=== PATIENT | male | born 1975 | race Caucasian/White ===

== ENCOUNTER 2017-07-01 14:07 | Outpatient (CLI) | payer MEDICAID ==
[2017-07-01 18:38] LABS: BASOPHILS % (AUTO) 0.5 %; EOSINOPHILS % (AUTO) 0.2 %; HCT - HEMATOCRIT 53.8 % (42.0-52.0); HGB - HEMOGLOBIN 18.2 g/dL (14.0-18.0); LYMPHOCYTES # (AUTO) 0.7 10^3/uL (1.5-3.5); LYMPHOCYTES % (AUTO) 7.8 %; MEAN CORPUSCULAR HGB CONC 33.9 g/dL (32.0-36.0); MEAN CORPUSCULAR VOLUME 94.4 fL (80.0-94.0); MEAN PLATELET VOLUME 7.2 fL (7.4-11.4); MONOCYTES # (AUTO) 0.7 10^3/uL (0.0-1.0); MONOCYTES % (AUTO) 7.7 %; NEUTROPHILS # (AUTO) 7.8 10^3/uL (1.5-6.6); NEUTROPHILS % (AUTO) 83.8 %; NUCLEATED RED BLOOD CELLS AUTO 0.1 /100WBC; RED CELL DISTRIBUTION WIDTH 17.2 % (12.0-15.0); UNCORRECTED WHITE BLOOD COUNT 9.3 x10^3/uL; WHITE BLOOD COUNT 9.3 x10^3/uL (4.8-10.8)
[2017-07-01 19:05] LABS: CREATININE 0.7 mg/dL (0.6-1.2); POTASSIUM 3.6 mmol/L (3.5-5.0); TOTAL PROTEIN 7.5 g/dL (6.7-8.2)
== END 2017-07-01 14:08 | disposition home or self-care (01) ==
LOC: LAB.F 14:07
PROVIDERS: ATTEND Nurse Practitioner Family
DX: F10.10 Alcohol abuse, uncomplicated (principal)
CPT/HCPCS: 36415; 80053; 85025

== ENCOUNTER 2017-09-06 14:01 | Outpatient (CLI) | payer MEDICAID ==
[2017-09-06 18:16] LABS: BASOPHILS # (AUTO) 0.1 10^3/uL (0.0-0.1); BASOPHILS % (AUTO) 0.6 %; EOSINOPHILS # (AUTO) 0.3 10^3/uL (0.0-0.7); EOSINOPHILS % (AUTO) 2.7 %; HCT - HEMATOCRIT 51.6 % (42.0-52.0); HGB - HEMOGLOBIN 17.8 g/dL (14.0-18.0); LYMPHOCYTES # (AUTO) 1.6 10^3/uL (1.5-3.5); LYMPHOCYTES % (AUTO) 16.2 %; MEAN CORPUSCULAR HEMOGLOBIN 32.7 pg (27.0-31.0); MEAN CORPUSCULAR HGB CONC 34.6 g/dL (32.0-36.0); MEAN CORPUSCULAR VOLUME 94.4 fL (80.0-94.0); MEAN PLATELET VOLUME 7.7 fL (7.4-11.4); MONOCYTES # (AUTO) 0.6 10^3/uL (0.0-1.0); MONOCYTES % (AUTO) 5.6 %; NEUTROPHILS # (AUTO) 7.4 10^3/uL (1.5-6.6); NEUTROPHILS % (AUTO) 74.9 %; NUCLEATED RED BLOOD CELLS AUTO 0.1 /100WBC; RED BLOOD COUNT 5.46 10^6/uL (4.70-6.10); RED CELL DISTRIBUTION WIDTH 15.2 % (12.0-15.0); UNCORRECTED WHITE BLOOD COUNT 9.9 x10^3/uL; WHITE BLOOD COUNT 9.9 x10^3/uL (4.8-10.8)
[2017-09-06 18:45] LABS: ALBUMIN/GLOBULIN RATIO 1.2 (1.0-2.2); BILIRUBIN,TOTAL 1.3 mg/dL (0.2-1.0); BUN - BLOOD UREA NITROGEN 14 mg/dL (6-20); CALCIUM 9.4 mg/dL (8.5-10.3); CARBON DIOXIDE - CO2 27 mmol/L (21-32); CHLORIDE 100 mmol/L (101-111); CHOL/HDL RATIO 4.8 (<5.0); CHOLESTEROL 328 mg/dL; CREATININE 0.7 mg/dL (0.6-1.2); GFR - MDRD 123 (>89); GLUCOSE 119 mg/dL (70-100); HDL CHOLESTEROL 68 mg/dL; SODIUM 138 mmol/L (135-145); TOTAL PROTEIN 7.8 g/dL (6.7-8.2); TRIGLYCERIDES 568 mg/dL
[2017-09-06 19:49] LABS: LDL CHOLESTEROL,DIRECT 200 mg/dL
== END 2017-09-06 14:02 | disposition home or self-care (01) ==
LOC: LAB.F 14:01
PROVIDERS: ATTEND Nurse Practitioner Family
DX: F10.10 Alcohol abuse, uncomplicated (principal); I10 Essential (primary) hypertension; Z13.220 Encounter for screening for lipoid disorders
CPT/HCPCS: 36415; 80050; 80061

== ENCOUNTER 2017-09-11 08:00 | Outpatient (CLI) | payer MEDICAID ==
[2017-09-11 18:38] LABS: FOLATE 16.01 ng/mL (5.90 - >24.8)
[2017-09-11 18:54] LABS: HEMOGLOBIN A1C 0.72 g/dL
== END 2017-09-11 08:01 | disposition home or self-care (01) ==
LOC: LAB.F 08:00
PROVIDERS: ATTEND Nurse Practitioner Family
DX: D64.9 Anemia, unspecified (principal); R73.9 Hyperglycemia, unspecified
CPT/HCPCS: 36415; 82607; 82746; 83036

== ENCOUNTER 2017-10-31 20:08 | Outpatient (CLI) | payer MEDICAID | END 2017-10-31 20:09 | disposition critical access hospital (66) | LOC: EMS 20:08 | PROVIDERS: ATTEND Surgery | DX: F10.129 Alcohol abuse with intoxication, unspecified (principal) | CPT/HCPCS: A0425; A0429 ==

== ENCOUNTER 2017-10-31 20:20 | Emergency (ER) | payer MEDICAID ==
[2017-10-31] MEDS ORDERED: SODIUM CHLORIDE 0.9% 1,000 ML IV ONE (20:29)
[2017-10-31] MEDS ORDERED: MIDAZOLAM 2 MG/2 ML VIAL IVP STA (20:29)
[2017-10-31] MEDS ORDERED: HALOPERIDOL 5 MG/ML VIAL IVP ONE (20:30)
[2017-10-31] MEDS ORDERED: MIDAZOLAM 2 MG/2 ML VIAL ONE (20:31)
[2017-10-31] MEDS ORDERED: HALOPERIDOL 5 MG/ML VIAL ONE (20:31)
--- NOTE | 2017-10-31 20:35 | ED Physician Documentation ---
PD HPI ALTERED MENTAL STATUS - Stated complaint Stated Complaint: EXPOSURE/ETOH - History obtained from History obtained from: Patient, EMS - History of Present Illness Timing - onset: Other (42-year-old male Brought in by ambulance, reportedly he was found down in somebody's yard with a bottle of alcohol at the side. He may have had a seizure, the paramedics think they witnessed some seizure activity. He also is saying that he took a whole bunch of medication but will not say why or what. He is beligerent and uncooperative on arrival here, fighting with the staff and swearing.) Review of Systems Unable to obtain: Uncooperative PD PAST MEDICAL HISTORY - Past Surgical History Past Surgical History: No - Present Medications Home Medications: Ambulatory Orders Medication Instructions Recorded Confirmed Cetirizine HCl 10 mg PO DAILY #30 tablet 01/23/16 Dexamethasone [Decadron] 4 mg PO DAILY #10 tablet 01/23/16 Hydrocortisone Acetate [Anucort-Hc] 25 mg RC DAILY #5 supp.rect 01/23/16 - Allergies Allergies/Adverse Reactions: Allergies Allergy/AdvReac Type Severity Reaction Status Date / Time Penicillins Allergy Unknown Unknown Verified 01/23/16 02:53 - Social History Does the pt smoke?: No Smoking Status: Former smoker Does the pt drink ETOH?: Yes Does the pt have substance abuse?: No - Immunizations Immunizations are current?: No - POLST Patient has POLST: No PD ED PE NORMAL - Vitals Vital signs reviewed: Yes - General General: Other (He is alert with slow slurred speech, fighting with the staff, multiple paramedics and police officers are holding him down. He is swearing a lot and uncooperative.) - HEENT HEENT: Other (Small pupils, not cooperating with extraocular movement exam) - Neck Neck: Supple, no meningeal sign, No bony TTP - Cardiac Cardiac: RRR, No murmur - Respiratory Respiratory: No respiratory distress, Clear bilaterally - Abdomen Abdomen: Normal bowel sounds, Soft, Non tender - Derm Derm: Other (He has psoriasis) - Extremities Extremities: Other (He is moving all extremities with good strength with which he is using to fight with the staff. Multiple staff members, please officers, and firefighters are holding him down.) - Neuro Neuro: Other (He is alert and oriented to person, otherwise I am unable to assess his orientation. He has excellent strength with all 4 extremities. He is using the strength to fight with staff.) Results - Vitals Vitals: Vital Signs - 24 hr 10/31/17 10/31/17 20:15 21:21 Temperature 37.2 C Heart Rate 96 96 Respiratory 20 18 Rate Blood Pressure 128/111 H 139/93 H O2 Saturation 98 98 Oxygen O2 Source Nasal cannula Oxygen Flow Rate 2 - EKG (time done) 2035 Rate: Rate (enter#) (98) Rhythm: NSR [place]: Normal Intervals: Normal [place] QRS: Normal Ischemia: Normal ST segments Computer interpretation: Agree with computer - Labs Labs: Laboratory Tests 10/31/17 10/31/17 10/31/17 20:35 20:51 20:51 WBC 12.1 H RBC 5.20 Hgb 16.7 Hct 48.9 MCV 94.1 H MCH 32.1 H MCHC 34.1 RDW 14.8 Plt Count 339 MPV 7.1 L Neut # Not Reportable Lymph # Not Reportable [place] # Not Reportable Eos # Not Reportable Baso # Not Reportable Absolute Nucleated RBC Not Reportable Total Counted 100 Band Neuts % (Manual) 5 Abnorm Lymph % (Manual) 0 Nucleated RBC % Not Reportable Neutrophils # (Manual) 10.5 H Lymphocytes # (Manual) 1.1 L Monocytes # (Manual) 0.4 Eosinophils # (Manual) 0.0 Basophils # (Manual) 0.1 Differential Comment MANUAL DIFFERENTIAL Manual Slide Review Indicated Platelet Estimate NORMAL (130-450,000) Platelet Morphology NORMAL APPEARANCE RBC Morph Micro Appear NORMAL APPEARANCE Sodium 142 Potassium 3.7 Chloride 101 Carbon Dioxide 19 L Anion Gap 22.0 H BUN 8 Creatinine 0.8 Estimated GFR (MDRD) 105 Glucose 138 H Calcium 9.0 Magnesium 1.7 Total Bilirubin 0.6 AST 36 ALT 42 Alkaline Phosphatase 69 Total Protein 8.1 Albumin 4.7 Globulin 3.4 Albumin/Globulin Ratio 1.4 Lipase 24 Urine Color YELLOW Urine Clarity CLEAR Urine pH 6.0 Ur Specific [place] 1.025 Urine Protein 100 H Urine Glucose (UA) NEGATIVE Urine Ketones NEGATIVE Urine Occult Blood TRACE-INTA Urine Nitrite NEGATIVE Urine Bilirubin NEGATIVE Urine Urobilinogen 0.2 (NORMAL) Ur Leukocyte Esterase NEGATIVE Urine RBC 0-5 Urine WBC 0-3 Ur Squamous Epith Cells NONE SEEN Amorphous Sediment Moderate Urine Bacteria None Seen Urine Casts 0-2 Hyaline Casts Ur Microscopic Review INDICATED Urine Culture Comments NOT INDICATED Salicylates < 6.0 Urine Opiates Screen NEGATIVE Ur Oxycodone Screen NEGATIVE Urine Methadone Screen NEGATIVE Ur Propoxyphene Screen NEGATIVE Acetaminophen < 10 L Ur Barbiturates Screen NEGATIVE Ur Tricyclics Screen NEGATIVE Ur Phencyclidine Scrn NEGATIVE Ur Amphetamine Screen NEGATIVE U Methamphetamines Scrn NEGATIVE U Benzodiazepines Scrn NEGATIVE Urine Cocaine Screen NEGATIVE U Cannabinoids Screen NEGATIVE Ethyl Alcohol 361.9 - Rads (name of study) CT Head Radiology: EMP read contemporaneously (No acute intracranial abnormality) Procedures - General procedure General procedure: It became readily apparent on arrival to the patient would need to be sedated for a workup and for staff safety. He is actively fighting us and is somewhat obese therefore I made the decision to place an IO. I personally placed an IO in the right proximal tibia anteriorly after ChloraPrep which krys back marrow and flushed easily. PD MEDICAL DECISION MAKING - ED course ED course: 42-year-old gentleman presents belligerent, violent and fighting with staff. Apparently drunk. For patient and staff safety he needed to be sedated. Because of uncooperativeness And fighting on arrival I did not feel like it was safe to try to place an IV so I personally placed an IO and we sedated him. At that point we were able to place an IV later once he was more cooperative and the IO was promptly removed. No obvious findings to explain his presentation other than severe alcohol intoxication. Care to Dr. Davidson at shift change to continue to monitor, hopefully after several hours of allowing him to stay sober up he will be able to be discharged without ill effect. Departure - Departure Clinical Impression: Combative behavior Alcohol intoxication Qualifiers: Complication of substance-induced condition: with delirium Qualified Code(s): F10.921 - Alcohol use, unspecified with intoxication delirium Condition: Good Record reviewed to determine appropriate education?: Yes Instructions: ED Alcohol Intoxication Comments: You got very drunk tonight and as such you were out of control and your behavior was dangerous to yourself and to public service personnel. Please refrain from drinking in the future. Call your doctor to arrange a follow-up appointment, make the next available appointment. In the interim, return anytime if worse or if new symptoms develop. Your blood pressure was elevated today on check into the emergency department. This does not mean that you have hypertension, it is a common phenomenon to come to the emergency department and have elevated blood pressure. I recommend that you see your primary care physician within the week to have it rechecked when you are feeling better.
[2017-10-31 20:50] LABS: BILIRUBIN,URINE NEGATIVE (NEGATIVE)
[2017-10-31 20:51] LABS: UA w/ MICROSCOPIC CHARGE YES
[2017-10-31 21:01] LABS: UR CULTURE IF IND NOT INDICATED; WBC,URINE 0-3 /HPF (0-3)
[2017-10-31 21:07] LABS: BASOPHILS % (AUTO) 1.6 %; EOSINOPHILS % (AUTO) 5.5 %; HCT - HEMATOCRIT 48.9 % (42.0-52.0); HGB - HEMOGLOBIN 16.7 g/dL (14.0-18.0); LYMPHOCYTES % (AUTO) 20.9 %; MEAN CORPUSCULAR HEMOGLOBIN 32.1 pg (27.0-31.0); MEAN CORPUSCULAR HGB CONC 34.1 g/dL (32.0-36.0); MEAN CORPUSCULAR VOLUME 94.1 fL (80.0-94.0); MEAN PLATELET VOLUME 7.1 fL (7.4-11.4); MONOCYTES % (AUTO) 5.5 %; NEUTROPHILS % (AUTO) 66.5 %; RED CELL DISTRIBUTION WIDTH 14.8 % (12.0-15.0); UNCORRECTED WHITE BLOOD COUNT 12.1 x10^3/uL; WHITE BLOOD COUNT 12.1 x10^3/uL (4.8-10.8)
[2017-10-31 21:33] LABS: ACETAMINOPHEN < 10 ug/mL (10-30); ALBUMIN/GLOBULIN RATIO 1.4 (1.0-2.2); BILIRUBIN,TOTAL 0.6 mg/dL (0.2-1.0); BUN - BLOOD UREA NITROGEN 8 mg/dL (6-20); CARBON DIOXIDE - CO2 19 mmol/L (21-32); CHLORIDE 101 mmol/L (101-111); CREATININE 0.8 mg/dL (0.6-1.2); GFR - MDRD 105 (>89); GLUCOSE 138 mg/dL (70-100); LIPASE 24 U/L (22-51); MAGNESIUM 1.7 mg/dL (1.7-2.8); POTASSIUM 3.7 mmol/L (3.5-5.0); SALICYLATE < 6.0 mg/dL; SODIUM 142 mmol/L (135-145); TOTAL PROTEIN 8.1 g/dL (6.7-8.2)
[2017-10-31 21:34] LABS: BAND NEUTROPHILS % (MANUAL) 5 %; BASOPHILS % (MANUAL) 1 %; LYMPHOCYTES % (MANUAL) 9 %; NEUTROPHILS % (MANUAL) 82 %; NP AUTO DIFFERENTIAL? YES; NP MAN DIFFERENTIAL? NO; PLATELET ESTIMATE, MANUAL NORMAL (130-450,000) (NORMAL); PLATELET MORPHOLOGY NORMAL APPEARANCE (NORMAL); TOTAL CELLS COUNTED 100
--- NOTE | 2017-10-31 21:37 | CT Preliminary Report ---
Exam: CT HEAD W/O IMPRESSION: 1. No acute intracranial abnormality. [facility] SITE ID: [id number]
--- NOTE | 2017-10-31 21:40 | CT Report ---
EXAM: CT HEAD EXAM DATE: 10/31/2017 09:09 PM. CLINICAL HISTORY: Poss head inj, poss seziure, altered. COMPARISON: 12/29/2010 CT head. TECHNIQUE: Multiaxial CT images were obtained from the foramen magnum to the vertex. Reformats: Coron al. IV contrast: None. In accordance with CT protocol optimization, one or more of the following dose reduction techniques w ere utilized for this exam: automated exposure control, adjustment of mA and/or KV based on patient s ize, or use of iterative reconstructive technique. FINDINGS: Parenchyma: No intraparenchymal hemorrhage. No evidence of mass, midline shift, or CT findings of inf arction. Ruiz-white differentiation is distinct. Extraaxial Spaces: Normal for age. No subdural or epidural collections identified. Ventricles: Normal in size and position. Sinuses and Orbits: There is extensive ethmoid air cell opacification. Mild mucosal thickening also s een in the maxillary air cells. Bones: No evidence of fracture or calvarial defect. Other: None. IMPRESSION: 1. No acute intracranial abnormality. [facility] Referring Provider Line: [phone] SITE ID: [id number]
[2017-11-01 05:51] VITALS: BP 179/114
--- NOTE | 2017-11-01 05:57 | ED Physician Documentation ---
ED Addendum - Addendum Addendum: 11/01/17 05:56 Patient was observed overnight without any difficulty. After approximately 10 hours patient was awake alert and oriented. patient was able to attend to conversation and ambulate without difficulty. patient was a bit hypertensive but he stated he took meds for it, but he did not know the name and he would take it when he got home. patient called his roomate to come pick him up.
== END 2017-11-01 06:07 | disposition home or self-care (01) ==
LOC: EDUNIT# → ED 20:20
DX: F91.8 Other conduct disorders (principal); F10.121 Alcohol abuse with intoxication delirium; R03.0 Elevated blood-pressure reading, without diagnosis of hypertension; Z87.891 Personal history of nicotine dependence
CPT/HCPCS: 36415; 36680; 51701; 70450; 80053; 80306; 80307; 80320; 80329; 81001; 81003; 83690; 83735; 85025; 87086; 93005; 99285

== ENCOUNTER 2017-11-20 00:21 | Outpatient (CLI) | payer MEDICAID | END 2017-11-20 00:22 | disposition critical access hospital (66) | LOC: EMS 00:21 | PROVIDERS: ATTEND Surgery | DX: S06.9X1A Unspecified intracranial injury with loss of consciousness of 30 minutes or less, initial encounter (principal); W01.190A Fall on same level from slipping, tripping and stumbling with subsequent striking against furniture, initial encounter; Z91.81 History of falling; Y92.018 Other place in single-family (private) house as the place of occurrence of the external cause | CPT/HCPCS: A0425; A0429 ==

== ENCOUNTER 2017-11-20 00:33 | Emergency (ER) | payer MEDICAID ==
--- NOTE | 2017-11-20 01:40 | CT Preliminary Report ---
Exam: CT HEAD W/O IMPRESSION: No acute or focal intracranial abnormality. Stable mucosal disease within the paranasal s inuses. [facility] SITE ID: [id number]
--- NOTE | 2017-11-20 01:43 | CT Report ---
EXAM: CT HEAD EXAM DATE: 11/20/2017 01:26 AM. CLINICAL HISTORY: Fall and intoxication . COMPARISON: 10/31/2017. TECHNIQUE: Multiaxial CT images were obtained from the foramen magnum to the vertex. Reformats: Coron al. IV contrast: None. In accordance with CT protocol optimization, one or more of the following dose reduction techniques w ere utilized for this exam: automated exposure control, adjustment of mA and/or KV based on patient s ize, or use of iterative reconstructive technique. FINDINGS: Parenchyma: No intraparenchymal hemorrhage. No evidence of mass, midline shift, or CT findings of inf arction. Ruiz-white differentiation is distinct. Extraaxial Spaces: Normal for age. No subdural or epidural collections identified. Ventricles: Normal in size and position. Sinuses and Orbits: Stable opacification of the ethmoid air cells bilaterally. Moderate mucosal thick ening within the left maxillary antrum. The appearance is similar. Bones: No evidence of fracture or calvarial defect. Other: None. IMPRESSION: No acute or focal intracranial abnormality. Stable mucosal disease within the paranasal s inuses. [facility] Referring Provider Line: [phone] SITE ID: [id number]
--- NOTE | 2017-11-20 02:56 | ED Physician Documentation ---
History of Present Illness - Stated complaint Stated Complaint: ETOH - Chief complaint Chief Complaint: Trauma Hd/Nk - History obtained from History obtained from: Patient (pt reports that his roomates called EMS because they heard a "thump" he states that he does not know why he is here. has no complaints states that he did not fall. states that he has been drinking but denies any other drugs.), EMS (EMS reports that they were called because the pt was intoxicated and fell hitting his head. Pt was combative at the scene and had to be restrained.) Review of Systems Unable to obtain: Intoxicated PD PAST MEDICAL HISTORY - Past Medical History Past Medical History: Yes Psych: Other Other Past Medical History: Alcohol abuse - Past Surgical History Past Surgical History: No - Present Medications Home Medications: Ambulatory Orders Medication Instructions Recorded Confirmed Cetirizine HCl 10 mg PO DAILY #30 tablet 01/23/16 11/20/17 Anticholesterol Meds 11/20/17 Depression Meds 11/20/17 Hypertension Meds 11/20/17 - Allergies Allergies/Adverse Reactions: Allergies Allergy/AdvReac Type Severity Reaction Status Date / Time Penicillins Allergy Unknown Unknown Verified 11/20/17 00:55 - Social History Does the pt smoke?: No Smoking Status: Never smoker Does the pt drink ETOH?: Yes Does the pt have substance abuse?: No - Immunizations Immunizations are current?: No - POLST Patient has POLST: No PD ED PE NORMAL - Vitals Vital signs reviewed: Yes - General General: Well developed/nourished. No: Alert and oriented X 3 (alert to person and that he was in the hospital but did not know why he was here) - HEENT HEENT: Atraumatic, Moist mucous membranes - Neck Neck: No bony TTP - Cardiac Cardiac: RRR, No murmur - Respiratory Respiratory: No respiratory distress, Clear bilaterally - Abdomen Abdomen: Soft, Non tender - Back Back: No CVA TTP, No spinal TTP - Derm Derm: Normal color, Warm and dry - Neuro Neuro: Other (intoxicated but cooperative ) Eye Opening: Spontaneous Motor: Obeys Commands Verbal: Confused GCS Score: 14 - Psych Psych: Normal mood (not combative on my exam. ) Results - Vitals Vitals: Vital Signs - 24 hr 11/20/17 11/20/17 11/20/17 00:35 01:10 05:43 Temperature 36.8 C Heart Rate 100 94 83 Respiratory 16 16 18 Rate Blood Pressure 111/87 H 99/51 L 100/74 O2 Saturation 95 96 98 Oxygen O2 Source Room air - Rads (name of study) head CT Radiology: Final report received (normal HEad CT ), EMP read contemporaneously PD MEDICAL DECISION MAKING - ED course Complexity details: reviewed results, considered differential, d/w patient ED course: pt has remained stable and calm in the ER. head CT neg for acute pathology. pt was clinically intoxicated upon arrival and admitted to drinking but no other signs of toxic ingestion or trauma and pt denied any other drug use. Pt was released to a friend. he was informed that he was not to drive for the next 24 hours or when he was drinking. He was given return precautions. Departure - Departure Disposition: 01 Home, Self Care Clinical Impression: Intoxication Condition: Good Instructions: Addiction Get Help, ED Alcohol Intoxication Follow-Up: primary, care provider [Other] Comments: Recommend that you decrease your alcohol use. No driving for the next 24 hours and no driving ever when you are drinking. Contact your primary care provider for a follow up. Return to the ER for any new symptoms.
[2017-11-20 05:44] VITALS: BP 100/74
== END 2017-11-20 05:48 | disposition home or self-care (01) ==
LOC: EDUNIT# → ED 00:33
DX: F10.129 Alcohol abuse with intoxication, unspecified (principal)
CPT/HCPCS: 70450; 99283; 99284

== ENCOUNTER 2017-11-28 16:00 | Outpatient (CLI) | payer MEDICAID ==
--- NOTE | 2017-11-29 11:47 | XRAY Report ---
DATE OF SERVICE: 11/28/2017 TWO VIEW CHEST: 11/28/2017 COMPARISON: None. INDICATION: Cough. TECHNIQUE: Two views of the chest. FINDINGS: There is borderline cardiomegaly. Clear lungs. No pneumothorax or pleural effusion. Mediastinum otherwise unremarkable. IMPRESSION: NO EVIDENCE OF ACUTE THORACIC PROCESS. THERE IS BORDERLINE CARDIOMEGALY. CORRELATE CLINICALLY. TD: 11/29/2017 12:06 [facility]
== END 2017-11-28 16:01 | disposition home or self-care (01) ==
LOC: DI.S 16:00
PROVIDERS: ATTEND Nurse Practitioner Family
DX: R05 Cough (principal)
CPT/HCPCS: 71046

== ENCOUNTER 2017-12-05 15:03 | Outpatient (CLI) | payer MEDICAID ==
[2017-12-05 18:01] LABS: ALBUMIN 4.4 g/dL (3.2-5.5); ALKALINE PHOSPHATASE 73 IU/L (42-121); ALT ALANINE AMINOTRANSFERASE 31 IU/L (10-60); AST ASPARTATE AMINOTRANSFERASE 25 IU/L (10-42); BILIRUBIN,TOTAL 0.7 mg/dL (0.2-1.0); CHOL/HDL RATIO 2.7 (<5.0); CHOLESTEROL 139 mg/dL; HDL CHOLESTEROL 52 mg/dL; LDL CHOLESTEROL,CALCULATED 54 mg/dL; TOTAL PROTEIN 7.6 g/dL (6.7-8.2); VLDL CHOLESTEROL 33 mg/dL
[2017-12-05 18:03] LABS: BILIRUBIN,DIRECT < 0.1 mg/dL (0.1-0.5)
== END 2017-12-05 15:04 | disposition home or self-care (01) ==
LOC: LAB.F 15:03
PROVIDERS: ATTEND Nurse Practitioner Family
DX: E78.5 Hyperlipidemia, unspecified (principal)
CPT/HCPCS: 36415; 80061; 80076

== ENCOUNTER 2017-12-20 19:48 | Outpatient (CLI) | payer MEDICAID | END 2017-12-20 19:49 | disposition critical access hospital (66) | LOC: EMS 19:48 | PROVIDERS: ATTEND Surgery | DX: R41.82 Altered mental status, unspecified (principal) | CPT/HCPCS: A0425; A0429 ==

== ENCOUNTER 2017-12-20 20:00 | Emergency (ER) | payer MEDICAID ==
--- NOTE | 2017-12-20 20:31 | ED Physician Documentation ---
PD HPI ALTERED MENTAL STATUS - Stated complaint Stated Complaint: AMS - Chief complaint Chief Complaint: Neuro - History obtained from History obtained from: Patient, EMS - History of Present Illness Timing - onset: Today (noted to be sitting on side of road by passersby who called 911. EMS patient stuporous and seemed intoxicated. Patient admitted to alccohol and also about "taking medication". Concern for OD. Here in the ED he says he just took his usual medications without extra doses.) Timing - details: Gradual onset Quality / character: Less responsive, Confused Associated symptoms: General weakness. No: Fever, Headache, Stiff neck, Dyspnea , Cough, NVD, Seizure activity, Syncope Contributing factors: Intoxicated, Known psych illness. No: Recent illness Basline status: Alert and oriented X 3, Ambulatory Similar symptoms before: Diagnosis (alcohol intoxication) Review of Systems Constitutional: denies: Fever Nose: denies: Rhinorrhea / runny nose, Congestion Throat: denies: Sore throat Cardiac: denies: Chest pain / pressure Respiratory: denies: Dyspnea, Cough GI: denies: Abdominal Pain Musculoskeletal: denies: Extremity pain, Extremity swelling Neurologic: denies: Focal weakness, Numbness, Altered mental status, Headache, Head injury PD PAST MEDICAL HISTORY - Past Medical History Cardiovascular: Hypertension, High cholesterol Respiratory: None Neuro: None Endocrine/Autoimmune: None Psych: Other - Past Surgical History Past Surgical History: No - Present Medications Home Medications: Ambulatory Orders Medication Instructions Recorded Confirmed Cetirizine HCl 10 mg PO DAILY #30 tablet 01/23/16 11/20/17 Anticholesterol Meds 11/20/17 Depression Meds 11/20/17 Hypertension Meds 11/20/17 - Allergies Allergies/Adverse Reactions: Allergies Allergy/AdvReac Type Severity Reaction Status Date / Time Penicillins Allergy Unknown Unknown Verified 12/20/17 20:08 - Social History Does the pt smoke?: No Smoking Status: Never smoker Does the pt drink ETOH?: Yes Does the pt have substance abuse?: No - Family History Family history: reports: Non contributory - Immunizations Immunizations are current?: No - POLST Patient has POLST: No PD ED PE NORMAL - Vitals Vital signs reviewed: Yes - General General: No acute distress, Well developed/nourished. No: Alert and oriented X 3 (he is conversant and oriented to person and place, not sure of time of day. ) - HEENT HEENT: Atraumatic, Pharynx benign - Neck Neck: Supple, no meningeal sign, No bony TTP, No adenopathy - Cardiac Cardiac: RRR, No murmur - Respiratory Respiratory: Clear bilaterally, Other (normal chest wall without tenderness. ) - Abdomen Abdomen: Soft, Non tender - Back Back: No CVA TTP, No spinal TTP - Derm Derm: Normal color, Warm and dry - Extremities Extremities: No tenderness to palpate, Normal ROM s pain - Neuro Neuro: No motor deficit, No sensory deficit, Normal speech Eye Opening: Spontaneous Motor: Obeys Commands Verbal: Oriented GCS Score: 15 Results - Vitals Vitals: Vital Signs - 24 hr 12/20/17 12/20/17 20:02 21:58 Temperature 36.5 C 36.8 C Heart Rate 86 82 Respiratory 16 18 Rate Blood Pressure 122/86 H 128/79 O2 Saturation 97 98 Oxygen O2 Source Room air - Labs Labs: Laboratory Tests 12/20/17 12/20/17 12/20/17 20:55 20:55 20:55 WBC 9.6 RBC 5.34 Hgb 16.3 Hct 48.4 MCV 90.6 MCH 30.5 MCHC 33.7 RDW 14.2 Plt Count 260 MPV 6.8 L Neut # 5.8 Lymph # 2.6 [place] # 0.5 Eos # 0.6 Baso # 0.2 H Absolute Nucleated RBC 0.00 Nucleated RBC % 0.0 Sodium 143 Potassium 3.6 Chloride 104 Carbon Dioxide 31 Anion Gap 8.0 BUN 11 Creatinine 0.7 Estimated GFR (MDRD) 123 Glucose 133 H Calcium 8.9 Total Bilirubin 0.8 AST 22 ALT 33 Alkaline Phosphatase 71 Total Protein 8.0 Albumin 4.6 Globulin 3.4 Albumin/Globulin Ratio 1.4 Lipase 27 TSH 0.95 Urine Color Urine Clarity Urine pH Ur Specific [place] Urine Protein Urine Glucose (UA) Urine Ketones Urine Occult Blood Urine Nitrite Urine Bilirubin Urine Urobilinogen Ur Leukocyte Esterase Ur Microscopic Review Urine Culture Comments Urine Opiates Screen Ur Oxycodone Screen Urine Methadone Screen Ur Propoxyphene Screen Ur Barbiturates Screen Ur Tricyclics Screen Ur Phencyclidine Scrn Ur Amphetamine Screen U Methamphetamines Scrn U Benzodiazepines Scrn Urine Cocaine Screen U Cannabinoids Screen Ethyl Alcohol 335.7 12/20/17 21:24 WBC RBC Hgb Hct MCV MCH MCHC RDW Plt Count MPV Neut # Lymph # [place] # Eos # Baso # Absolute Nucleated RBC Nucleated RBC % Sodium Potassium Chloride Carbon Dioxide Anion Gap BUN Creatinine Estimated GFR (MDRD) Glucose Calcium Total Bilirubin AST ALT Alkaline Phosphatase Total Protein Albumin Globulin Albumin/Globulin Ratio Lipase TSH Urine Color LT. YELLOW Urine Clarity CLEAR Urine pH 5.5 Ur Specific [place] <=1.005 Urine Protein NEGATIVE Urine Glucose (UA) NEGATIVE Urine Ketones NEGATIVE Urine Occult Blood NEGATIVE Urine Nitrite NEGATIVE Urine Bilirubin NEGATIVE Urine Urobilinogen 0.2 (NORMAL) Ur Leukocyte Esterase NEGATIVE Ur Microscopic Review NOT INDICATED Urine Culture Comments NOT INDICATED Urine Opiates Screen NEGATIVE Ur Oxycodone Screen NEGATIVE Urine Methadone Screen NEGATIVE Ur Propoxyphene Screen NEGATIVE Ur Barbiturates Screen NEGATIVE Ur Tricyclics Screen NEGATIVE Ur Phencyclidine Scrn NEGATIVE Ur Amphetamine Screen NEGATIVE U Methamphetamines Scrn NEGATIVE U Benzodiazepines Scrn NEGATIVE Urine Cocaine Screen NEGATIVE U Cannabinoids Screen NEGATIVE Ethyl Alcohol PD MEDICAL DECISION MAKING - ED course Complexity details: considered differential (patient seemed intoxicated here but easily rousable and breathing well. Watched for a period in ED and not worsening. Nurse called his father in law, who did not act surprised that patient intoxicated and remarked to the effect of "where did they find him this time". Father in law was willing to come pick him up and bring him home to sleep. I feel the patient is safe with this and patient agreeable and would prefer to go sleep at home. ), d/w patient Departure - Departure Disposition: 01 Home, Self Care Clinical Impression: Altered mental status Qualifiers: Altered mental status type: delirium Qualified Code(s): R41.0 - Disorientation , unspecified Alcohol intoxication Qualifiers: Complication of substance-induced condition: with delirium Qualified Code(s): F10.921 - Alcohol use, unspecified with intoxication delirium Condition: Stable Record reviewed to determine appropriate education?: Yes Instructions: ED Alcohol Intoxication Follow-Up: Grace Rios ARNP [Primary Care Provider] - Comments: Drink lots of fluids at home. Sleep for the rest of the night. Avoid excess alcohol. Seek medical help or attend AA meetings or such to decrease alcohol use. Follow-up with your primary care if continued symptoms after sobering time. Discharge Date/Time: 12/20/17 22:00
[2017-12-20 21:03] LABS: BASOPHILS # (AUTO) 0.2 10^3/uL (0.0-0.1); BASOPHILS % (AUTO) 1.7 %; EOSINOPHILS # (AUTO) 0.6 10^3/uL (0.0-0.7); EOSINOPHILS % (AUTO) 6.5 %; HGB - HEMOGLOBIN 16.3 g/dL (14.0-18.0); LYMPHOCYTES # (AUTO) 2.6 10^3/uL (1.5-3.5); LYMPHOCYTES % (AUTO) 27.3 %; MEAN CORPUSCULAR HEMOGLOBIN 30.5 pg (27.0-31.0); MEAN CORPUSCULAR HGB CONC 33.7 g/dL (32.0-36.0); MEAN CORPUSCULAR VOLUME 90.6 fL (80.0-94.0); MEAN PLATELET VOLUME 6.8 fL (7.4-11.4); MONOCYTES # (AUTO) 0.5 10^3/uL (0.0-1.0); MONOCYTES % (AUTO) 4.8 %; NEUTROPHILS # (AUTO) 5.8 10^3/uL (1.5-6.6); NEUTROPHILS % (AUTO) 59.7 %; PLT - PLATELET COUNT 260 10^3/uL (130-450); RED BLOOD COUNT 5.34 10^6/uL (4.70-6.10); RED CELL DISTRIBUTION WIDTH 14.2 % (12.0-15.0); WHITE BLOOD COUNT 9.6 x10^3/uL (4.8-10.8)
[2017-12-20 21:12] LABS: ALBUMIN 4.6 g/dL (3.2-5.5); ALBUMIN/GLOBULIN RATIO 1.4 (1.0-2.2); BILIRUBIN,TOTAL 0.8 mg/dL (0.2-1.0); CALCIUM 8.9 mg/dL (8.5-10.3); CREATININE 0.7 mg/dL (0.6-1.2)
[2017-12-20 21:25] LABS: MUDS CUTOFF CONCENTRATIONS CUTOFF CONC BELOW:
[2017-12-20 21:27] LABS: BILIRUBIN,URINE NEGATIVE (NEGATIVE); GLUCOSE, URINE (UA) NEGATIVE (NEGATIVE); KETONES,URINE (UA) NEGATIVE (NEGATIVE); LEUKOCYTE ESTERASE, URINE NEGATIVE (NEGATIVE); NITRITE,URINE NEGATIVE (NEGATIVE); OCCULT BLOOD,URINE NEGATIVE (NEGATIVE); PH,URINE 5.5 PH (5.0-7.5); PROTEIN,URINE NEGATIVE (NEGATIVE); UROBILINOGEN,URINE 0.2 (NORMAL) E.U./dL (NORMAL)
[2017-12-20 21:36] LABS: CLARITY,URINE CLEAR (CLEAR)
[2017-12-20 21:43] LABS: AMPHETAMINE SCREEN,URINE NEGATIVE (NEGATIVE); BENZODIAZEPINES SCREEN, URINE NEGATIVE (NEGATIVE); COCAINE SCREEN URINE NEGATIVE (NEGATIVE); METHADONE SCREEN, URINE NEGATIVE (NEGATIVE); METHAMPHETAMINES SCREEN, URINE NEGATIVE (NEGATIVE); OPIATE SCREEN, URINE NEGATIVE (NEGATIVE); OXYCODONE SCREEN, URINE NEGATIVE (NEGATIVE); PROPOXYPHENE SCREEN, URINE NEGATIVE (NEGATIVE); TRICYCLIC ANTIDEPRESSANT,URINE NEGATIVE (NEGATIVE)
[2017-12-20 22:00] VITALS: BP 128/79
== END 2017-12-20 22:00 | disposition home or self-care (01) ==
LOC: EDBD → EDUNIT# → ED 20:00
DX: F10.921 Alcohol use, unspecified with intoxication delirium (principal); I10 Essential (primary) hypertension; E78.00 Pure hypercholesterolemia, unspecified
CPT/HCPCS: 36415; 80053; 80306; 80320; 81001; 81003; 83690; 84443; 85025; 87086; 99283